=== PATIENT | female | born 1985 | race African-American/Black ===

== ENCOUNTER 2018-07-03 23:36 | Emergency (ER) | payer SELFPAY ==
[~2018-07-03] VITALS: Ht 160 cm; Wt 72.6 kg
[2018-07-03 23:45] VITALS: BP 122/74
[2018-07-04] MEDS ORDERED: PENI500T PO (00:05)
[2018-07-04] MEDS ORDERED: CHLO15MO2 PO (00:05)
[2018-07-04] MEDS ORDERED: HYDR-3164 PO (00:05)
--- NOTE | 2018-07-04 00:05 | PHYS DOC ---
Past Medical History Past Medical History: No Pertinent History (GAVINO BURRELL APRN) Past Surgical History: Other Additional Past Surgical Histo: partial hysterectomy (GAVINO BURRELL APRN) Alcohol Use: None Drug Use: None (GAVINO BURRELL APRN) Adult General Chief Complaint Chief Complaint: DENTAL PROBLEM HPI HPI 33-year-old female presents to ER for complaints of right upper dental abscess and facial swelling. She reports over the past 1-2 days she has had increased swelling and pain along the right upper gumline. Patient states she had palpable abscess which started draining- she reports pain has continued however. Patient states she has had right facial swelling denies vision changes, eye pain, or fever. She reports she has been able to eat and drink however with chewing does have increased pain. Pt denies any recent injury or dental fractures. Patient reports she is a daily smoker. She reports history of hysterectomy. (GAVINO BURRELL APRN) Review of Systems Review of Systems Constitutional: Denies fever or chills [] Eyes: Denies change in visual acuity, redness, or eye pain [] HENT: Denies nasal congestion or sore throat. Reports rt upper gum swelling/redness- she reports she had abscess which drained earlier tonight. Reports rt facial swelling Cardiovascular: Denies CP/palpitations GI: Denies nausea, vomiting Musculoskeletal: Denies neck pain/stiffness Integument: Denies rash or skin lesions [] Neurologic: Denies headache, focal weakness or sensory changes. Denies dizziness All other systems were reviewed and found to be within normal limits, except as documented in this note. (GAVINO BURRELL APRN) Current Medications Current Medications Current Medications Medications (Trade) Dose Ordered Sig/Julio Start Time Stop Time Status Last Admin Dose Admin Acetaminophen/ Hydrocodone Bitart (Lortab 5/325) 1 tab 1X ONCE 07/04/18 00:15 07/04/18 00:17 DC 07/04/18 00:19 1 TAB Ibuprofen (Motrin) 800 mg 1X ONCE 07/04/18 00:15 07/04/18 00:17 DC 07/04/18 00:19 800 MG Penicillin V Potassium (Veetid) 500 mg 1X ONCE 07/04/18 00:15 07/04/18 00:17 DC 07/04/18 00:15 500 MG (JASMIN UMAAN MD) Allergies Allergies Allergies Coded Allergies Type Severity Reaction Last Updated Verified No Known Drug Allergies 07/03/18 No (JASMIN UMANA MD) Physical Exam Physical Exam Constitutional: Well developed, well nourished, no acute distress, non-toxic appearance. [] HENT: Normocephalic, atraumatic, bilateral ears normal, oropharynx moist- rt upper/outer gum swelling/erythema- no palp. or visible abscess. Palate soft- no palp. abscess. Multiple dental caries- multiple teeth missing. No pharyngeal swelling/erythema/exudate, nose normal. Rt side upper lip swelling into cheek- no erythema Eyes: PERRLA, no nystagmus, conjunctiva normal, no discharge. No orbital swelling Neck: Normal range of motion, no tenderness, supple, no stridor/gross adenopathy Cardiovascular: Heart rate regular Lungs & Thorax: Resp. equal/nonlabored Skin: Warm, dry, no erythema, no rash. [] Extremities: ROM intact, no edema. [] Neurologic: Alert and oriented X 3, normal motor function, normal sensory function, no focal deficits noted. [] Psychologic: Affect normal, judgement normal, mood normal. [] (GAVINO BURRELL APRN) Current Patient Data Vital Signs Vital Signs Date Time Temp Pulse Resp B/P (MAP) Pulse Ox O2 Delivery O2 Flow Rate FiO2 07/04/18 00:19 16 Room Air 07/03/18 23:45 98.6 93 122/74 (90) 100 98.6 (JASMIN UMANA MD) EKG EKG [] (GAVINO BURRELL APRN) Radiology/Procedures Radiology/Procedures [] (GAVINO BURRELL APRN) Course & Med Decision Making Course & Med Decision Making Patient was evaluated in the ER for complaints of right upper dental abscess which she reported had been draining tonight. Patient had no palpable abscess or drainage on exam. Patient had right facial swelling without eye involvement. Patient was having no difficulty swallowing. Patient is visiting from out of town and so advised patient when she returns home she needs to see a dentist as soon as possible. Patient provided with ibuprofen, [place], and dose of penicillin while in the ER. She will be provided with penicillin and Peridex prescription as well as small quantity of pain medicine. Patient advised on smoking cessation, use of Tylenol and/or ibuprofen, and to increase fluid intake. Education provided on signs and symptoms to return to ER. Discharge instructions were discussed. Patient was nontoxic in appearance. [] (GAVINO BURRELL APRN) Course & Med Decision Making Staff Physician Addendum: I was working in the ER during the course of this patient's visit. I was available for consultation as needed, but I was not directly involved in the care of this patient. (JASMIN UMANA MD) Dragon Disclaimer Dragon Disclaimer This electronic medical record was generated, in whole or in part, using a voice recognition dictation system. (GAVINO BURRELL APRN) Departure Departure Impression: Primary Impression: Dental caries Additional Impression: Dental abscess Disposition: 01 HOME, SELF-CARE Condition: STABLE Referrals: NO PCP (PCP) Patient Instructions: Dental Abscess, Dental Caries, Smoking Cessation Additional Instructions: Drink plenty of water daily. Avoid smoking. Ice or warm compress to right cheek every 3-4 hours for 20-30 minutes at a time. Warm salty swish multiple times daily. Is important for you to follow-up with a dentist when he returned home as soon as possible. Ibuprofen and/or Tylenol as needed for pain as directed on container. If taking the prescribed [place] avoid additional Tylenol. Scripts Chlorhexidine Gluconate (PERIDEX) 15 Ml Mouthwash 15-30 ML PO TID PRN for PAIN, #473 ML 0 Refills Prov: GAVINO BURRELL APRN 07/04/18 Hydrocodone/Apap 5-325 (NORCO 5-325 TABLET) 1 Each Tablet 1 TAB PO PRN Q6HRS PRN for PAIN, #12 TAB 0 Refills Prov: GAVINO BURRELL APRN 07/04/18 Penicillin V Potassium (PENICILLIN V POTASSIUM) 500 Mg Tablet 1 TAB PO TID, #30 TAB 0 Refills Prov: GAVINO BURRELL APRN 07/04/18 Problem Qualifiers GAVINO BURRELL APRN July 04, 2018 00:05 JSAMIN UMANA MD July 08, 2018 14:17
[2018-07-04] MEDS ORDERED: IBUPROFEN 400 MG TABLET. PO ONE (00:15)
[2018-07-04] MEDS ORDERED: HYDROcodone/APAP 5/325MG 1 TAB TABLET PO ONE (00:15)
[2018-07-04] MEDS ORDERED: PENICILLIN V K 250 MG TABLET. PO ONE (00:15)
== END 2018-07-04 00:25 | disposition home or self-care (01) ==
LOC: ER 23:36
DX: K04.7 Periapical abscess without sinus (principal); K02.9 Dental caries, unspecified; Z90.710 Acquired absence of both cervix and uterus
CPT/HCPCS: 99284